=== PATIENT | female | born 1980 ===

== ENCOUNTER 2022-05-24 14:10 | Observation (INO) ==
[2022-05-24 15:31] LABS: Bacteria,Urine Occasional /HPF (Few); RBC,Urine 1 /HPF (0-4); Squamous Epithelial Cell,Urine Occasional /HPF (0-10)
[2022-05-24 15:32] LABS: Bilirubin,Urine Negative (Negative); Blood, Urine Trace mg/dL (Negative); Glucose,Urine (UA) Negative (Negative); Ketones,Urine Negative (Negative); Nitrite,Urine Negative (Negative); Protein,Urine Negative (Negative); Urine Appearance Clear (Clear); Urine Color Yellow (Yellow); Urine Specific Gravity < 1.005 (1.001-1.035)
[2022-05-24 15:33] LABS: Urine Urobilinogen 0.2 eU/dL (<2.0)
[2022-05-24] MEDS ORDERED: MORPHINE 2 MG/1 ML SYRINGE IV STA (19:59)
[2022-05-24] MEDS ORDERED: ONDANSETRON 4 MG/2 ML VIAL IV STA (19:59)
[2022-05-24] MEDS ORDERED: SODIUM CHLORIDE 0.9% 1,000 ML IV STA (19:59)
[2022-05-24 20:27] LABS: Basophils # 0.1 10*3/uL (0.0-0.2); Basophils % 0.3 % (0.0-0.8); Eosinophils # 0.6 10*3/uL (0.0-0.87); Eosinophils % 3.3 % (0.00-10.9); Hematocrit 41.1 VOL% (35.7-47.0); Hemoglobin 13.4 GM/DL (12.0-16.0); Immature Granulocytes % 0.6 %; Lymphocytes # 3.9 10*3/uL (1.4-4.0); Lymphocytes % 23.6 % (21.3-54.2); Mean Corpuscular HGB Conc 32.6 GM/DL (32-36); Mean Corpuscular Volume 88.8 FL (87-102); Monocytes # 0.9 10*3/uL (0.11-0.8); Monocytes % 5.7 % (1.7-12.7); Neutrophils % 66.5 % (38.7-73.9); Platelet Count 423 T/CUMM (130-400); Red Blood Count 4.63 MC/CUMM (3.8-5.5); Red Cell Distribution Width 13.4 % (9.3-17.3); White Blood Count 16.5 T/CUMM (4-12)
[2022-05-24 20:44] LABS: Albumin 3.5 G/DL (3.4-5.0); Bilirubin,Total 0.4 MG/DL (0.20-1.00); Calcium 9.8 MG/DL (8.5-10.1); Osmolality,Calculated 275.5 MOS/KG (273-304); Potassium 2.8 MMOL/L (3.5-5.1); Total Protein 7.7 G/DL (6.4-8.2)
[2022-05-24] MEDS ORDERED: TAMSULOSIN 0.4 MG CAPSULE PO STA (21:53)
[2022-05-24] MEDS ORDERED: cefTRIAXone 1,000 MG in SODIUM CHLORIDE 0.9% 100 ML IV STA (21:53)
[2022-05-25] MEDS ORDERED: ACETAMINOPHEN 325 MG TABLET PO PRN (00:49)
[2022-05-25] MEDS ORDERED: PROMETHAZINE 25 MG/1 ML VIAL IM PRN (00:49)
[2022-05-25] MEDS ORDERED: ONDANSETRON 4 MG/2 ML VIAL IV PRN ×2 (00:49→13:50)
[2022-05-25] MEDS: HYDROmorphone 1 MG/1 ML SYRINGE IV PRN ×4 (00:58→14:10)
[2022-05-25] MEDS: SODIUM CHLORIDE 0.45% 1,000 ML IV SCH ×2 (01:45→10:13)
[2022-05-25] MEDS ORDERED: DIPHENOXYLATE/ATROPINE 2.5-0.025 MG TABLET PO PRN (06:17)
[2022-05-25] MEDS ORDERED: DICYCLOMINE 20 MG TABLET PO PRN (06:17)
[2022-05-25] MEDS ORDERED: ALBUTEROL 1.25 MG/3 ML NEB RESP TX PRN (06:19)
[2022-05-25] MEDS ORDERED: POTASSIUM CHLORIDE 20 MEQ TABLET PO ONE (06:53)
[2022-05-25] MEDS ORDERED: TAMSULOSIN 0.4 MG CAPSULE PO SCH (09:00)
[2022-05-25] MEDS ORDERED: MONTELUKAST 10 MG TABLET PO SCH (09:00)
[2022-05-25] MEDS ORDERED: fentaNYL 100 MCG/2 ML VIAL ONE (11:51)
[2022-05-25] MEDS ORDERED: MIDAZOLAM 2 MG/2 ML VIAL ONE (11:51)
[2022-05-25] MEDS ORDERED: SEVOFLURANE 1 UNIT/15 MINUTE INH ONE (12:33)
[2022-05-25] MEDS ORDERED: LIDOCAINE 2% 5 ML VIAL ONE (12:33)
[2022-05-25] MEDS ORDERED: ONDANSETRON 4 MG/2 ML VIAL ONE (12:33)
[2022-05-25] MEDS ORDERED: propofoL 200 MG/20 ML VIAL IV ONE (12:33)
[2022-05-25] MEDS ORDERED: ROCURONIUM 50 MG/5 ML VIAL IV ONE (12:33)
[2022-05-25] MEDS ORDERED: SUCCINYLCHOLINE 200 MG/10 ML VIAL ONE (12:33)
[2022-05-25] MEDS ORDERED: cefTRIAXone 1,000 MG VIAL ONE (12:51)
[2022-05-25] MEDS ORDERED: SUGAMMADEX 200 MG/2 ML VIAL IV ONE (13:23)
[2022-05-25] MEDS ORDERED: PROMETHAZINE INJ 25 MG in SODIUM CHLORIDE 0.9% 50 ML IV PRN (13:50)
[2022-05-25 16:50] VITALS: BP 151/88
[2022-06-01 11:06] LABS: Stone Source Right Ureter
[2022-06-01 18:31] LABS: Stone Source Left Ureter
== END 2022-05-25 17:57 | disposition home or self-care (01) ==
LOC: N.ED 14:10 → N.5E 14:10
PROVIDERS: ADMIT Surgery; ATTEND Surgery